=== PATIENT | female | born 1950 ===

== ENCOUNTER 2018-12-21 15:07 | Inpatient (IN) ==
[2018-12-21] MEDS ORDERED: SODIUM CHLORIDE 0.9% 1,000 ML IV STA ×2 (15:47→16:25)
[2018-12-21] MEDS ORDERED: PIPERACILLIN/TAZOBACTAM 3,375 MG in SODIUM CHLORIDE 0.9% 100 ML IV STA (15:50)
[2018-12-21] MEDS ORDERED: PANTOPRAZOLE 40 MG VIAL IV STA (16:26)
[2018-12-21] MEDS ORDERED: LIDOCAINE 1% 20 ML VIAL ONE (16:36)
[2018-12-21] MEDS ORDERED: BUPIVACAINE MPF 0.25% 30 ML VIAL ONE (16:36)
[2018-12-21] MEDS ORDERED: TISSUE ADHESIVE 1 EACH APPLICATOR TOP ONE (16:36)
[2018-12-21] MEDS ORDERED: PROMETHAZINE 25 MG/1 ML VIAL IM PRN (18:18)
[2018-12-21] MEDS ORDERED: DEXTROSE 10% 250 ML BAG IV PRN (18:18)
[2018-12-21] MEDS ORDERED: GLUCAGON 1 MG VIAL IM PRN (18:18)
[2018-12-21] MEDS ORDERED: HYDROmorphone 2 MG/1 ML VIAL IV PRN (18:18)
[2018-12-21] MEDS ORDERED: ONDANSETRON 4 MG/2 ML VIAL IV PRN (18:18)
[2018-12-21] MEDS ORDERED: SUGAMMADEX 200 MG/2 ML VIAL IV ONE (18:27)
[2018-12-21 18:32] LABS: Basophils % 0.6 % (0.0-0.8); Eosinophils % 0.4 % (0.00-10.9); Hemoglobin 13.7 GM/DL (12.0-16.0); Immature Granulocytes % 0.2 %; Immature Granulocytes Absolute 0.01 #; Lymphocytes # 0.5 10*3/uL (1.4-4.0); Lymphocytes % 9.2 % (21.3-54.2); Mean Corpuscular HGB Conc 35.1 GM/DL (32-36); Mean Corpuscular Volume 95.1 FL (87-102); Monocytes % 7.9 % (1.7-12.7); Neutrophils % 81.7 % (38.7-73.9); Platelet Count 191 T/CUMM (130-400); White Blood Count 5.4 T/CUMM (4-12)
[2018-12-21 18:41] LABS: Calcium 9.1 MG/DL (8.5-10.1)
[2018-12-21] MEDS ORDERED: SEVOFLURANE 1 UNIT/15 MINUTE INH ONE (18:45)
[2018-12-21] MEDS ORDERED: ONDANSETRON 4 MG/2 ML VIAL ONE (18:45)
[2018-12-21] MEDS ORDERED: PROPOFOL 200 MG/20 ML VIAL IV ONE (18:45)
[2018-12-21] MEDS ORDERED: fentaNYL 100 MCG/2 ML VIAL ONE (18:45)
[2018-12-21] MEDS ORDERED: LIDOCAINE 2% 5 ML VIAL ONE (18:45)
[2018-12-21] MEDS ORDERED: GLYCOPYRROLATE 0.4 MG/2 ML VIAL ONE (18:46)
[2018-12-21] MEDS ORDERED: ROCURONIUM 100 MG/10 ML VIAL IV ONE (18:46)
[2018-12-21] MEDS ORDERED: ALBUTEROL INHALER 8 GM INH ONE (18:46)
[2018-12-21] MEDS ORDERED: SUCCINYLCHOLINE 200 MG/10 ML VIAL ONE (18:46)
[2018-12-21] MEDS ORDERED: KETOROLAC 30 MG/1 ML VIAL ONE (18:46)
[2018-12-21] MEDS ORDERED: NEOSTIGMINE 10 MG/10 ML VIAL ONE (18:46)
[2018-12-21] MEDS ORDERED: PHENYLEPHRINE 1 MG/10 ML SYRINGE IV ONE (18:46)
[2018-12-21] MEDS ORDERED: SODIUM CHLORIDE 0.9% 1,000 ML IV ONE (18:46)
[2018-12-21] MEDS ORDERED: LACTATED RINGERS 1,000 ML IV ONE ×2 (18:46→20:35)
[2018-12-21 19:09] LABS: Band Neutrophils 10 % (0-10); Lymphocytes 8 % (20-55); Platelet Estimate Adequate; Segmented Neutrophils 72 % (50-85); Total Cells Counted 100
[2018-12-21] MEDS: LACTATED RINGERS 1,000 ML IV SCH (19:40)
[2018-12-21] MEDS ORDERED: INFLUENZA VIRUS VACCINE 0.5 ML SYRINGE IM ONE (20:08)
[2018-12-21] MEDS ORDERED: ALBUMIN 5% 25 GM in PREMIX 1 EACH IV ONE (20:33)
[2018-12-21] MEDS ORDERED: ALBUMIN 5% 12.5 GM/250 ML VIAL IV ONE (20:35)
[2018-12-21 20:55] LABS: ABG Base Excess -4.7 MMOL/L (-2.5-2.5); ABG HCO3 20.5 MMOL/L (20-26); ABG Oxygen Saturation 96.2 % (95-100); ABG PH 7.372 (7.35-7.45); ABG PO2 78.1 MM HG (80-95); ABG TCO2 17.7 MMOL/L (23-27); Allen Test Positive
[2018-12-21] MEDS ORDERED: ENOXAPARIN 40 MG/0.4 ML SYRINGE SUBCUT SCH (21:00)
[2018-12-21 21:08] LABS: Basophils % 0.2 % (0.0-0.8); Hematocrit 34.3 VOL% (35.7-47.0); Hemoglobin 11.4 GM/DL (12.0-16.0); Immature Granulocytes % 0.2 %; Immature Granulocytes Absolute 0.02 #; Lymphocytes # 0.6 10*3/uL (1.4-4.0); Lymphocytes % 7.5 % (21.3-54.2); Mean Corpuscular HGB Conc 33.2 GM/DL (32-36); Mean Corpuscular Volume 97.4 FL (87-102); Mean Platelet Volume 10.3 FL (9.6-12.0); Monocytes % 6.6 % (1.7-12.7); Neutrophils % 85.5 % (38.7-73.9); Platelet Count 152 T/CUMM (130-400); Red Blood Count 3.52 MC/CUMM (3.8-5.5); Red Cell Distribution Width 14.2 % (9.3-17.3); White Blood Count 8.2 T/CUMM (4-12)
[2018-12-21 21:19] LABS: Calcium 7.8 MG/DL (8.5-10.1); Osmolality,Calculated 289.1 MOS/KG (273-304)
[2018-12-21 22:14] LABS: Anisocytosis 1+; Band Neutrophils 32 % (0-10); Lymphocytes 8 % (20-55); Metamyelocytes 1 %; Platelet Estimate Adequate; Segmented Neutrophils 56 % (50-85); Total Cells Counted 100
[2018-12-21] MEDS: AMPICILLIN/SULBACTAM 1,500 MG in SODIUM CHLORIDE 0.9% 100 ML IV SCH (22:51)
[2018-12-21] MEDS: INSULIN REGULAR 100 UNIT/ML SUBCUT SCH (22:52)
[2018-12-21] MEDS: carvediloL 12.5 MG TABLET PO SCH (22:53)
[2018-12-21] MEDS: PANTOPRAZOLE 40 MG VIAL IV SCH (22:54)
[2018-12-21] MEDS: CLARITHROMYCIN 500 MG TABLET PO SCH (23:14)
[2018-12-21] MEDS: SIMVASTATIN 10 MG TABLET PO SCH (23:15)
[2018-12-21] MEDS: AMOXICILLIN 500 MG CAPSULE PO SCH (23:15)
[2018-12-21] MEDS ORDERED: ALBUMIN 5% 50 GM in PREMIX 1 EACH IV ONE (23:52)
[2018-12-22] MEDS ORDERED: ALBUMIN 5% 12.5 GM/250 ML VIAL IV ONE (00:06)
[2018-12-22 02:04] LABS: Basophils % 0.2 % (0.0-0.8); Hematocrit 28.5 VOL% (35.7-47.0); Hemoglobin 9.8 GM/DL (12.0-16.0); Immature Granulocytes % 0.6 %; Immature Granulocytes Absolute 0.05 #; Lymphocytes # 0.8 10*3/uL (1.4-4.0); Mean Corpuscular HGB Conc 34.4 GM/DL (32-36); Mean Corpuscular Volume 96.6 FL (87-102); Mean Platelet Volume 10.2 FL (9.6-12.0); Monocytes % 7.1 % (1.7-12.7); Neutrophils % 82.1 % (38.7-73.9); Platelet Count 119 T/CUMM (130-400); Red Blood Count 2.95 MC/CUMM (3.8-5.5); Red Cell Distribution Width 14.4 % (9.3-17.3); White Blood Count 8.1 T/CUMM (4-12)
[2018-12-22] MEDS: AMPICILLIN/SULBACTAM 1,500 MG in SODIUM CHLORIDE 0.9% 100 ML IV SCH ×4 (02:07→20:34)
[2018-12-22 02:21] LABS: Calcium 7.9 MG/DL (8.5-10.1); Osmolality,Calculated 293.7 MOS/KG (273-304)
[2018-12-22 02:27] LABS: INR 1.2; PT Patient Result 12.6 SECS (9.6-12.2); Partial Thromboplastin Time 28.7 SECS (20.8-36.0)
[2018-12-22] MEDS: LACTATED RINGERS 1,000 ML IV SCH ×3 (04:07→19:59)
[2018-12-22 05:34] LABS: Anisocytosis 1+; Band Neutrophils 24 % (0-10); Hypochromasia 1+; Lymphocytes 9 % (20-55); Microcytosis 1+; Platelet Estimate Decreased; Polychromasia 1+; Segmented Neutrophils 64 % (50-85); Total Cells Counted 100
[2018-12-22] MEDS: INSULIN REGULAR 100 UNIT/ML SUBCUT SCH ×4 (07:10→21:06)
[2018-12-22] MEDS: AMOXICILLIN 500 MG CAPSULE PO SCH ×2 (08:17→21:09)
[2018-12-22] MEDS: PANTOPRAZOLE 40 MG VIAL IV SCH ×2 (08:17→21:10)
[2018-12-22] MEDS: ASPIRIN CHEW 81 MG TABLET PO SCH (08:18)
[2018-12-22] MEDS: CLARITHROMYCIN 500 MG TABLET PO SCH ×2 (08:18→21:10)
[2018-12-22] MEDS: POTASSIUM CHLORIDE 10 MEQ TABLET PO SCH (08:18)
[2018-12-22] MEDS: carvediloL 12.5 MG TABLET PO SCH ×2 (08:18→17:13)
[2018-12-22] MEDS: amLODIPine 10 MG TABLET PO SCH (08:18)
[2018-12-22] MEDS: CHLORTHALIDONE 25 MG TABLET PO SCH (08:18)
[2018-12-22 08:45] LABS: Apearance,Urine CLEAR (Clear); Bacteria,Urine Occasional /HPF (Few); Bilirubin,Urine Negative (Negative); Blood, Urine Moderate mg/dL (Negative); Glucose,Urine (UA) 50 mg/dL (Negative); Hyaline Casts,Urine 9 /LPF (0-3); Ketones,Urine Negative (Negative); Nitrite,Urine Negative (Negative); Protein,Urine Negative; RBC,Urine 13 /HPF (0-4); Urine Color Amber (Yellow); Urine Specific Gravity 1.025 (1.001-1.035); WBC,Urine 8 /HPF (0-6)
[2018-12-22] MEDS ORDERED: ENOXAPARIN 40 MG/0.4 ML SYRINGE SUBCUT SCH (09:00)
[2018-12-22] MEDS: LINEZOLID INJ 600 MG in PREMIX 1 EACH IV SCH ×2 (10:20→21:26)
[2018-12-22] MEDS: SIMVASTATIN 10 MG TABLET PO SCH (21:10)
[2018-12-23] MEDS: AMPICILLIN/SULBACTAM 1,500 MG in SODIUM CHLORIDE 0.9% 100 ML IV SCH (01:35)
[2018-12-23] MEDS: LACTATED RINGERS 1,000 ML IV SCH (03:40)
[2018-12-23 04:09] LABS: Basophils % 0.2 % (0.0-0.8); Eosinophils # 0.2 10*3/uL (0.0-0.87); Eosinophils % 2.4 % (0.00-10.9); Hematocrit 29.3 VOL% (35.7-47.0); Hemoglobin 9.9 GM/DL (12.0-16.0); Immature Granulocytes % 0.9 %; Immature Granulocytes Absolute 0.07 #; Lymphocytes # 1.4 10*3/uL (1.4-4.0); Lymphocytes % 16.6 % (21.3-54.2); Mean Corpuscular HGB Conc 33.8 GM/DL (32-36); Mean Corpuscular Volume 96.7 FL (87-102); Mean Platelet Volume 10.3 FL (9.6-12.0); Monocytes % 8.4 % (1.7-12.7); Neutrophils % 71.5 % (38.7-73.9); Platelet Count 125 T/CUMM (130-400); Red Blood Count 3.03 MC/CUMM (3.8-5.5); Red Cell Distribution Width 14.6 % (9.3-17.3); White Blood Count 8.2 T/CUMM (4-12)
[2018-12-23 04:16] LABS: INR 1.2; PT Patient Result 13.2 SECS (9.6-12.2)
[2018-12-23 04:35] LABS: Albumin 2.7 G/DL (3.4-5.0); Bilirubin,Total 1.5 MG/DL (0.2-1.0); Calcium 7.4 MG/DL (8.5-10.1); Osmolality,Calculated 283.3 MOS/KG (273-304); Total Protein 5.9 G/DL (6.4-8.3)
[2018-12-23] MEDS ORDERED: FUROSEMIDE 20 MG/2 ML VIAL IV ONE (06:49)
[2018-12-23] MEDS: amLODIPine 10 MG TABLET PO SCH (09:13)
[2018-12-23] MEDS: PANTOPRAZOLE 40 MG TABLET PO SCH ×2 (09:13→21:52)
[2018-12-23] MEDS: CLARITHROMYCIN 500 MG TABLET PO SCH ×2 (09:13→21:50)
[2018-12-23] MEDS: AMOXICILLIN 500 MG CAPSULE PO SCH ×2 (09:13→21:50)
[2018-12-23] MEDS: ASPIRIN CHEW 81 MG TABLET PO SCH (09:13)
[2018-12-23] MEDS: carvediloL 12.5 MG TABLET PO SCH ×2 (09:13→18:20)
[2018-12-23] MEDS: ENOXAPARIN 40 MG/0.4 ML SYRINGE SUBCUT SCH (09:13)
[2018-12-23] MEDS: POTASSIUM CHLORIDE 10 MEQ TABLET PO SCH (09:14)
[2018-12-23] MEDS: CHLORTHALIDONE 25 MG TABLET PO SCH (09:14)
[2018-12-23] MEDS: prednisoLONE ACETATE 1% OPH SUSP 5 ML BOTTLE BOTH EYES SCH (09:14)
[2018-12-23] MEDS: INSULIN REGULAR 100 UNIT/ML SUBCUT SCH ×4 (09:15→20:54)
[2018-12-23] MEDS: LINEZOLID INJ 600 MG in PREMIX 1 EACH IV SCH ×2 (11:50→23:00)
[2018-12-23] MEDS: SIMVASTATIN 10 MG TABLET PO SCH (21:51)
[2018-12-24 04:47] LABS: Basophils % 0.4 % (0.0-0.8); Eosinophils # 0.2 10*3/uL (0.0-0.87); Hematocrit 29.6 VOL% (35.7-47.0); Hemoglobin 10.1 GM/DL (12.0-16.0); Immature Granulocytes % 0.7 %; Immature Granulocytes Absolute 0.05 #; Lymphocytes # 1.3 10*3/uL (1.4-4.0); Lymphocytes % 18.1 % (21.3-54.2); Mean Corpuscular HGB Conc 34.1 GM/DL (32-36); Mean Corpuscular Volume 96.4 FL (87-102); Mean Platelet Volume 10.6 FL (9.6-12.0); Monocytes % 9.2 % (1.7-12.7); Neutrophils % 68.6 % (38.7-73.9); Platelet Count 132 T/CUMM (130-400); Red Blood Count 3.07 MC/CUMM (3.8-5.5); Red Cell Distribution Width 13.7 % (9.3-17.3)
[2018-12-24 05:15] LABS: Albumin 2.6 G/DL (3.4-5.0); Bilirubin,Total 1.4 MG/DL (0.2-1.0); Osmolality,Calculated 284.3 MOS/KG (273-304); Total Protein 6.1 G/DL (6.4-8.3)
[2018-12-24] MEDS ORDERED: FUROSEMIDE 20 MG/2 ML VIAL IV ONE (09:08)
[2018-12-24 09:19] LABS: Basophils % 0.5 % (0.0-0.8); Eosinophils # 0.2 10*3/uL (0.0-0.87); Eosinophils % 3.1 % (0.00-10.9); Hematocrit 29.2 VOL% (35.7-47.0); Hemoglobin 10.2 GM/DL (12.0-16.0); Immature Granulocytes % 0.3 %; Immature Granulocytes Absolute 0.02 #; Lymphocytes # 1.1 10*3/uL (1.4-4.0); Mean Corpuscular HGB Conc 34.9 GM/DL (32-36); Mean Corpuscular Volume 95.1 FL (87-102); Mean Platelet Volume 10.4 FL (9.6-12.0); Monocytes % 8.3 % (1.7-12.7); Neutrophils % 70.8 % (38.7-73.9); Platelet Count 129 T/CUMM (130-400); Red Blood Count 3.07 MC/CUMM (3.8-5.5); Red Cell Distribution Width 13.7 % (9.3-17.3); White Blood Count 6.4 T/CUMM (4-12)
[2018-12-24] MEDS: AMOXICILLIN 500 MG CAPSULE PO SCH ×2 (09:20→21:28)
[2018-12-24] MEDS: CLARITHROMYCIN 500 MG TABLET PO SCH ×2 (09:21→21:28)
[2018-12-24] MEDS: carvediloL 12.5 MG TABLET PO SCH ×2 (09:21→18:49)
[2018-12-24] MEDS: POTASSIUM CHLORIDE 10 MEQ TABLET PO SCH (09:22)
[2018-12-24] MEDS: ASPIRIN CHEW 81 MG TABLET PO SCH (09:22)
[2018-12-24] MEDS: PANTOPRAZOLE 40 MG TABLET PO SCH ×2 (09:22→21:28)
[2018-12-24] MEDS: amLODIPine 10 MG TABLET PO SCH (09:23)
[2018-12-24] MEDS: CHLORTHALIDONE 25 MG TABLET PO SCH (09:23)
[2018-12-24] MEDS: ENOXAPARIN 40 MG/0.4 ML SYRINGE SUBCUT SCH (09:24)
[2018-12-24] MEDS: prednisoLONE ACETATE 1% OPH SUSP 5 ML BOTTLE BOTH EYES SCH (09:27)
[2018-12-24 09:44] LABS: Albumin 2.6 G/DL (3.4-5.0); Bilirubin,Total 1.3 MG/DL (0.2-1.0); Calcium 7.9 MG/DL (8.5-10.1); Osmolality,Calculated 282.5 MOS/KG (273-304); Total Protein 5.6 G/DL (6.4-8.3)
[2018-12-24] MEDS: INSULIN REGULAR 100 UNIT/ML SUBCUT SCH ×4 (10:45→21:29)
[2018-12-24] MEDS: LINEZOLID INJ 600 MG in PREMIX 1 EACH IV SCH ×2 (10:47→22:02)
[2018-12-24 12:15] LABS: Troponin I 0.053 NG/ML (0.00-0.045)
[2018-12-24 17:53] LABS: Troponin I 0.042 NG/ML (0.00-0.045)
[2018-12-24] MEDS: SIMVASTATIN 10 MG TABLET PO SCH (21:29)
[2018-12-25] MEDS: INSULIN REGULAR 100 UNIT/ML SUBCUT SCH ×4 (07:42→20:40)
[2018-12-25] MEDS: ASPIRIN CHEW 81 MG TABLET PO SCH (08:11)
[2018-12-25] MEDS: CLARITHROMYCIN 500 MG TABLET PO SCH ×2 (08:11→20:39)
[2018-12-25] MEDS: carvediloL 12.5 MG TABLET PO SCH ×2 (08:11→17:01)
[2018-12-25] MEDS: AMOXICILLIN 500 MG CAPSULE PO SCH ×2 (08:11→20:39)
[2018-12-25] MEDS: ENOXAPARIN 40 MG/0.4 ML SYRINGE SUBCUT SCH (08:12)
[2018-12-25] MEDS: amLODIPine 10 MG TABLET PO SCH (08:12)
[2018-12-25] MEDS: PANTOPRAZOLE 40 MG TABLET PO SCH ×2 (08:12→20:39)
[2018-12-25] MEDS: POTASSIUM CHLORIDE 10 MEQ TABLET PO SCH (08:12)
[2018-12-25] MEDS: CHLORTHALIDONE 25 MG TABLET PO SCH (08:12)
[2018-12-25] MEDS: prednisoLONE ACETATE 1% OPH SUSP 5 ML BOTTLE BOTH EYES SCH (08:12)
[2018-12-25] MEDS: LINEZOLID INJ 600 MG in PREMIX 1 EACH IV SCH (11:21)
[2018-12-25] MEDS: SIMVASTATIN 10 MG TABLET PO SCH (20:40)
[2018-12-26] MEDS: INSULIN REGULAR 100 UNIT/ML SUBCUT SCH ×3 (08:29→16:32)
[2018-12-26] MEDS: PANTOPRAZOLE 40 MG TABLET PO SCH (09:35)
[2018-12-26] MEDS: CHLORTHALIDONE 25 MG TABLET PO SCH (09:35)
[2018-12-26] MEDS: AMOXICILLIN 500 MG CAPSULE PO SCH (09:35)
[2018-12-26] MEDS: CLARITHROMYCIN 500 MG TABLET PO SCH (09:35)
[2018-12-26] MEDS: amLODIPine 10 MG TABLET PO SCH (09:36)
[2018-12-26] MEDS: ENOXAPARIN 40 MG/0.4 ML SYRINGE SUBCUT SCH (09:36)
[2018-12-26] MEDS: carvediloL 12.5 MG TABLET PO SCH ×2 (09:36→16:22)
[2018-12-26] MEDS: ASPIRIN CHEW 81 MG TABLET PO SCH (09:36)
[2018-12-26] MEDS: POTASSIUM CHLORIDE 10 MEQ TABLET PO SCH (09:36)
[2018-12-26] MEDS: prednisoLONE ACETATE 1% OPH SUSP 5 ML BOTTLE BOTH EYES SCH ×2 (09:36→11:04)
[2018-12-26] MEDS ORDERED: prednisoLONE ACETATE 1% OPH SUSP 5 ML BOTTLE BOTH EYES SCH (14:00)
[2018-12-26 15:48] VITALS: BP 118/58
== END 2018-12-26 16:49 | disposition home health service (06) | DRG 327 ==
LOC: N.ED 15:07 → N.EDINP 16:23 → N.ICU 17:28 → N.3E 12-24 16:14
PROVIDERS: ADMIT Surgery; ATTEND Surgery